=== PATIENT | male | born 1950 | race Caucasian/White ===

== ENCOUNTER → 2017-09-18 11:42 | Outpatient (CLI) | payer MEDICARE, OTHER, SELFPAY ==
[2017-09-18 13:25] LABS: ALB/GLOB Ratio 1.1 RATIO (0.9-2.4); AST(SGOT) 19 U/L (15-37); Alanine Aminotransfer ALT/SGPT 24 U/L (16-61); Alkaline Phosphatase 80 U/L (45-117); Anion Gap 8 (5-15); BUN 18 mg/dL (7-18); BUN/Creat Ratio 13.1 RATIO (10-20); Calcium,Total 8.8 mg/dL (8.5-10.1); Chloride 108 mmol/L (98-107); Cholesterol 128 mg/dL (200); Creatinine, Serum 1.37 mg/dL (0.70-1.30); EST Glomerular Filtration Rate 55 mL/min (>60); Est Glom Filt Rate - Afr Amer 67 mL/min (>60); Globulin 3.8 g/dL (2.2-4.2); Glucose 110 mg/dL (74-106); High Density Lipoprotein 34 mg/dL; Potassium 4.1 mmol/L (3.5-5.1); Protein, Total 7.8 g/dL (6.4-8.2); Sodium Level 144 mmol/L (136-145); Triglycerides 189 mg/dL; Very Low Density Lipoprotein 38 mg/dL (5-40)
[2017-09-18 16:10] LABS: Microalbumin,Random Urine 12.3 mg/L (NO RANGE EST.); Microalbumin:Creatinine Ratio 5.4 mg/g CRE (<30 mg/g CRE)
== END ==
PROVIDERS: Family Provider Nurse Practitioner; PCP Nurse Practitioner; Visit Provider Nurse Practitioner
DX: E11.9 Type 2 diabetes mellitus without complications (principal); I10 Essential (primary) hypertension; E55.9 Vitamin D deficiency, unspecified; E53.8 Deficiency of other specified B group vitamins
CPT/HCPCS: 36415; 80053; 80061; 82043; 82570; 84443

== ENCOUNTER → 2018-01-21 12:13 | Outpatient (CLI) | payer MEDICARE, OTHER, SELFPAY ==
[2018-01-21 13:29] LABS: ALB/GLOB Ratio 1.1 RATIO (0.9-2.4); AST(SGOT) 25 U/L (15-37); Alanine Aminotransfer ALT/SGPT 31 U/L (16-61); Alkaline Phosphatase 73 U/L (45-117); Anion Gap 12 (5-15); BUN 14 mg/dL (7-18); BUN/Creat Ratio 11.4 RATIO (10-20); Calcium,Total 8.8 mg/dL (8.5-10.1); Chloride 109 mmol/L (98-107); Creatinine, Serum 1.23 mg/dL (0.70-1.30); EST Glomerular Filtration Rate 62 mL/min (>60); Est Glom Filt Rate - Afr Amer 76 mL/min (>60); Globulin 3.6 g/dL (2.2-4.2); Glucose 112 mg/dL (74-106); PSA,Total - Annual Screen 0.48 ng/mL (0.00-4.00); Potassium 4.1 mmol/L (3.5-5.1); Protein, Total 7.6 g/dL (6.4-8.2); Sodium Level 144 mmol/L (136-145); Thyroid Stim Hormone (TSH) 2.51 uIU/mL (0.358-3.74)
[2018-01-22 09:10] LABS: Vitamin D,25 Hydroxy 34.6 ng/mL (29.95-100.01)
== END ==
PROVIDERS: Family Provider Nurse Practitioner; PCP Nurse Practitioner; Visit Provider Nurse Practitioner
DX: E11.9 Type 2 diabetes mellitus without complications (principal); I10 Essential (primary) hypertension; E55.9 Vitamin D deficiency, unspecified; Z12.5 Encounter for screening for malignant neoplasm of prostate
CPT/HCPCS: 36415; 80053; 82306; 84153; 84443; G0103

== ENCOUNTER → 2018-02-08 13:04 | Outpatient (CLI) | payer MEDICARE, OTHER, SELFPAY ==
--- NOTE | 2018-02-08 13:07 | CDU_ITS ---
Reason For Study: CAROTID BRUIT Rt. Velocities/BP Lt. Velocities/BP Prox CCA 131/22.3 cm/sec. Prox CCA 111/12.6 cm/sec. Mid CCA 103/19.6 cm/sec. Mid CCA 90.3/16.4 cm/sec. Dist CCA 88.8/17.3 cm/sec. Dist CCA 80.9/12.3 cm/sec. Prox ICA 107/23.6 cm/sec. Prox ICA 125/26.7 cm/sec. Mid ICA 97.4/32.2 cm/sec. Mid ICA 115/27.5 cm/sec. Dist ICA 108/31.4 cm/sec. Dist ICA 108/29.1 cm/sec. Rt. ICA/CCA = 1.05. Lt. ICA/CCA = 1.38. Prox ECA 238/17 cm/sec. Prox ECA 460/31.4 cm/sec. Rt. Vert. 55/10.6 cm/sec. Lt. Vert. 44/14.9 cm/sec. Right Extracranial There is no significant atherosclerotic plaque noted in the right common carotid artery. There is heterogeneous, smooth atherosclerotic plaque noted in the right internal carotid artery. There is homogeneous, irregular atherosclerotic plaque noted in the right external carotid artery. Antegrade flow is noted in the right vertebral artery. Left Extracranial There is heterogeneous, irregular atherosclerotic plaque noted in the left common carotid artery. There is heterogeneous, irregular atherosclerotic plaque noted in the left internal carotid artery. There is homogeneous, irregular atherosclerotic plaque noted in the left external carotid artery. The atherosclerotic plaque causes acoustic shadowing. Antegrade flow is noted in the left vertebral artery. There is heterogeneous, irregular atherosclerotic plaque noted in the left bulb. Procedure Carotid Duplex [id number]. The exam was diagnostic. Exam performed in department. Interpretation Summary Mild (<50%) stenosis right extracranial internal carotid. Mild (<50%) stenosis left extracranial internal carotid. Flow within the vertebral arteries is antegrade bilaterally. Heterogeneous, irregular, atherosclerotic plaque is noted in the left carotid bulb, which does not appear to be hemodynamically significant. Elevated velocities are noted in the external carotid arteries bilaterally, particularly on the left, which is suggestive of stenosis. Clinical correlation is advised. Ordering Physician: Matilda Huang Referring Physician: Matilda Huang Performed By: Tiffanie Marie RVT, RDCS and Student
== END ==
PROVIDERS: Family Provider Nurse Practitioner; PCP Nurse Practitioner; Visit Provider Nurse Practitioner
DX: R09.89 Other specified symptoms and signs involving the circulatory and respiratory systems (principal)
CPT/HCPCS: 93880